=== PATIENT | female | born 1940 | race Caucasian/White ===

== ENCOUNTER 2019-12-02 16:43 | Emergency (ER) | payer MEDICARE, SELFPAY ==
[2019-12-02 16:47] VITALS: BP 200/92; PULSE 51; RESP 18; TEMP 35.6; O2SAT 95; BMI 35.1
[2019-12-02 17:44] VITALS: BP 197/72; PULSE 47; RESP 14; O2SAT 93
[2019-12-02 17:48] LABS: Absolute Lymphocyte Count 1.79 X10^3/uL (0.83-4.51); Absolute Neutrophil Count 5.9 X10^3/uL (2.0-7.7); Basophil# 0.06 X10^3/uL; Basophil% 0.7 % (0-1); Eosinophil# 0.53 X10^3/uL; Eosinophils% 5.9 % (0-5); Hematocrit 31.7 % (37-47); Hemoglobin 10.2 g/dL (12.0-15.0); Lymphocyte # 1.79 X10^3/ul (4.0); Lymphocyte % 19.9 % (19-41); Mean Corp Hgb Conc 32.2 g/dL (32-36); Mean Corpuscular Hgb 28.2 pg (27.0-32.0); Mean Corpuscular Volume 87.6 fL (81-99); Monocyte# 0.63 X10^3/uL; NRBC Flagged by Analyzer 0 % (0-5); Neutrophil # 5.88 X10^3/uL (2.7-7.7); Neutrophil % 65.5 % (47-70); Platelet Count 210 K/mm3 (150-450); RBC Distribution Width CV 13.8 % (11.6-14.6); RBC Distribution Width SD 44.6 fl (35.1-43.9); Red Blood Count 3.62 M/mm3 (4.2-5.4)
[2019-12-02 17:56] LABS: Anion Gap 5 (5-15); BUN 43 mg/dL (7-18); BUN/Creat Ratio 14.1 RATIO (10-20); Calcium,Total 8.4 mg/dL (8.5-10.1); Chloride 115 mmol/L (98-107); Creatinine, Serum 3.05 mg/dL (0.55-1.02); EST Glomerular Filtration Rate 16 mL/min (>60); Est Glom Filt Rate - Afr Amer 19 mL/min (>60); Estimated Creatinine Clearance 13.54 ml/min; Glucose 122 mg/dL (74-106); Sodium Level 142 mmol/L (136-145)
[2019-12-02 18:15] VITALS: BP 176/76; PULSE 49; RESP 16; O2SAT 96
[2019-12-02 18:16] LABS: Bedside Glucose 207 mg/dL (70-110)
--- NOTE | 2019-12-02 18:45 | ED.DCSUM_ITS ---
- ER Visit Summary Date of Service: 12/02/19 Chief Complaint: Low blood sugar History of Present Illness: The patient is a [address] Ridley. She reports that she takes 22 units of Novolog every morning, after lunch, and after supper. She takes 40 units of Lantus nightly. She reports that she had a bologna sandwich approximately 1130 or 12. She took her blood sugar it was 147. At 330 she was found by her unresponsive. On EMS arrival her blood sugar was 31. She was given a dose of glucagon IM and D10 IV. She is now awake, alert, and appropriate. Review of systems: General: No fever, chills, cold sweats. Cardiovascular: No chest pain, palpitations. Respiratory: No cough, shortness of breath, dyspnea on exertion. Gastrointestinal: No abdominal pain, nausea, vomiting, diarrhea, melena, or hematochezia. Genitourinary: No dysuria, frequency, hematuria. Skin: No rash. Neuro: No headache, numbness, weakness. Physical Examination: Vitals: Stable. Afebrile. General: Well-nourished and well-developed. Head: Normocephalic atraumatic. Neck: Supple, no lymphadenopathy. No JVD. Nontender. Cardiovascular: Regular rate and rhythm. No murmurs. Respiratory: No respiratory distress. Clear to auscultation bilaterally. Abdominal: Soft, nontender, nondistended, normal bowel sounds. No guarding, rebound, or peritoneal signs. Back: Nontender. Extremities: Nontender, no edema. Skin: Normal color, no rash. Neurologic: Alert and oriented ?3. Cranial nerves II through XII are intact. Normal strength and sensation. Psych: Normal affect. Test Results: CBC shows an H&H 10.2 and 31.7. Chem-7 shows a chloride of 115, glucose 122, BUN 43, creatinine 3.05, calcium of 8.4. I do not have old labs for comparison. Emergency Department Course and Treatment: Patient ate a meal here and is re sting comfortably. Repeat blood sugars in the 180s. I discussed at this time I do not have an explanation for why her sugar dropped if she has not changed her medications or missed a meal. Treatment Plan: Patient would like to go home. She has a granddaughter that will stay with her and check her sugar once an hour for 2 hours and then every 2 hours for 8 hours following that. She is instructed to skip herdose of NovoLog and take her Lantus tonight as prescribed. Follow-up with her primary care physician in 2 days for another exam. Blood pressure was elevated here. However, she did have a blood pressure 176/76 at one point here as well. I do not think that putting her on a new medication for her blood pressure is in her best interest. She is instructed to speak with her primary care physician about her blood pressure when she sees her as well. Return to the emergency department for any worsening symptoms. Disposition: To home in improved and stable condition. Impression: 1. Hyperglycemia on insulin. 2. Chronic renal insufficiency. 3. Hypertension. This note was generated with [employer] software. It may contain incorrect words, spelling, and punctuation that were not noted in review of the chart prior to signing ED Disposition - Plan for ED Patient: Disposition: Home or Assisted Living Instructions: ED HYPOGLYCEMIA Insulin Rxn Referrals: Florinda Ridley [Primary Care Provider] - 2 Days
[2019-12-02 19:13] VITALS: BP 180/90; PULSE 53; RESP 14; O2SAT 97
[2019-12-02 19:15] LABS: Bedside Glucose 185 mg/dL (70-110)
[2019-12-02 19:40] VITALS: TEMP 35.6; BMI 35.1
[2019-12-04 15:21] LABS: Bedside Glucose 122 mg/dL (70-110)
== END 2019-12-02 19:42 | disposition home or self-care (01) ==
LOC: ED 18:23
PROVIDERS: Emergency Provider Emergency Medicine; PCP Family Medicine
DX: E11.65 Type 2 diabetes mellitus with hyperglycemia (principal); Z79.4 Long term (current) use of insulin; I12.9 Hypertensive chronic kidney disease with stage 1 through stage 4 chronic kidney disease, or unspecified chronic kidney disease; N18.9 Chronic kidney disease, unspecified
CPT/HCPCS: 80048; 82962; 85025; 99285; A4216; J1610

== ENCOUNTER 2020-10-23 12:02 | Inpatient (IN) | payer MEDICARE, MEDICAID, SELFPAY ==
[2020-10-23] VITALS (13 sets, daily range): BP systolic 146–226; BP diastolic 65–95; PULSE 62–67; RESP 14–18; TEMP 36.4–37.1; O2SAT 94–97; BMI 31.1; BMI 29.7
--- NOTE | 2020-10-23 12:31 | EKG12_ITS ---
Test Reason : GEN. ILLNESS Blood Pressure : / mmHG Vent. Rate : 065 BPM Atrial Rate : 065 BPM P-R Int : 202 ms QRS Dur : 114 ms QT Int : 474 ms P-R-T Axes : 050 -67 022 degrees QTc Int : 492 ms Normal sinus rhythm Left axis deviation Anteroseptal infarct , age undetermined Abnormal ECG Confirmed by DEBORA BYRNE, JW ([id number]), newspaper editor managing WU RILEY ([id number]) on 10/28/2020 9:34:40 AM Referred By: ERNIE Confirmed By:LESLEE CAZARES MD
--- NOTE | 2020-10-23 12:35 | ED.VIS.GEN ---
History of Present Illness Chief Complaint: Unresponsive Informant: Patient, Family, Laundry Worker Narrative: 80-year-old female who resides at home and currently was on hospice for end-stage renal disease was unresponsive this morning. revoked hospice and tells me that you need to get her better so I can care for her at home. She entered hospice in the summer months last year. He has been states that they are trying to get her into a care center in [place] where family works. He does not know the status of that. EMS was called and they state that she had a GCS of 8 when they got there when they got her out to the ambulance she had an emesis and is now ANO x3 with a GCS of 15. Patient currently states that she is cold and needs to urinate. Otherwise she states she does not have any complaints. states that he does not know what to do these try to do everything at home to accommodate her but if she cannot get better than he she cannot stay at the house anymore. Patient herself signed a DNR Comfort Care form. She does not want to hooked up to any machines. states that they would like to have little things done to keep her going. Past Medical History - Allergies and Home Meds Allergies/Adverse Reactions: Allergies No Known Allergies Allergy (Verified 10/23/20 12:34) Primary Care Physician: Florinda Ridley [Primary Care Provider] - Past Medical History: - - Chronic kidney disease, hypertension, dyslipidemia Surgical History: noncontributory Lives: Spouse/ Significant Other Smoking Status: Never smoker Drugs: None Review of Systems General: Reports: Chills, Malaise. Denies: Fever, Sweats Eyes: Denies: Visual changes - bilaterally, Diplopia ENT: Denies: Rhinorrhea, Sore throat Cardiovascular: Denies: Chest pain, Palpitations Respiratory: Denies: Dyspnea, Cough, Dyspnea on exertion Gastrointestinal: Denies: Abdominal pain, Nausea, Vomiting, Diarrhea, Melena, Hematochezia Genitourinary: Denies: Dysuria, Hematuria, Frequency Musculoskeletal: Denies: Back pain, Extremity Pain Skin: Denies: Rash, Wounds Neurological: Denies: Headache, Weakness, Numbness Physical Exam Vital Signs/Narrative: Vital Signs Temp Pulse Resp BP Pulse Ox 10/23/20 12:34 63 17 226/95 H 97 10/23/20 12:06 97.6 F L 64 17 215/95 H 96 Inital Vital Signs reviewed: Yes General: Well nourished, Well developed, Obese, No Acute Distress, - - Patient is globally weak. Head: Normocephalic, Atraumatic Eyes: Perrl, EOMI ENT: Moist mucous membranes, No rhinorrhea Neck: Supple, Nontender Cardiovascular: Regular rate, Regular rhythm, No murmurs Respiratory: No distress, CTA bilaterally, Chest nontender Abdomen: Soft, Nontender, Nondistended, Normal bowel sounds Back: Nontender, Normal Inspection Extremities: Nontender, No edema Skin: Normal color, No rash Neurological: Alert, Oriented x3, Cranial nerves II-XII grossly intact, Normal Strength, Normal Sensation Psychological: Normal affect, Normal Mood Diagnostic/Tx/Re-eval Clinical Impression(s) from Imaging Studies Chest X-Ray 10/23/20 12:40 IMPRESSION: No acute abnormality is seen. Electronically Signed: Danie Boyd MD at 13:11 EST , Service support , Brain CT 10/23/20 12:55 IMPRESSION: Chronic involutional changes of the brain. Electronically Signed: Danie Boyd MD at 13:14 EST , Service support , Laboratory Last Values WBC 12.5 K/mm3 (4.4-11.0) H 10/23/20 13:23 RBC 3.46 M/mm3 (4.2-5.4) L 10/23/20 13:23 Hgb 10.0 g/dL (12.0-15.0) L 10/23/20 13:23 Hct 30.1 % (37-47) L 10/23/20 13:23 MCV 87.0 fL (81-99) 10/23/20 13:23 MCH 28.9 pg (27.0-32.0) 10/23/20 13:23 MCHC 33.2 g/dL (32-36) 10/23/20 13:23 RDW Std Deviation 39.2 fl (35.1-43.9) 10/23/20 13:23 RDW Coeff of [place] 12.2 % (11.6-14.6) 10/23/20 13:23 Plt Count 261 K/mm3 (150-450) 10/23/20 13:23 MPV 9.5 fl (6.2-12.0) 10/23/20 13:23 Immature Gran % (Auto) 0.600 % (0.0-0.9) 10/23/20 13:23 Neut % (Auto) 78.6 % (47-70) H 10/23/20 13:23 Lymph % (Auto) 13.9 % (19-41) L 10/23/20 13:23 [place] % (Auto) 3.4 % (0-10) 10/23/20 13:23 Eos % (Auto) 2.9 % (0-5) 10/23/20 13:23 Baso % (Auto) 0.6 % (0-1) 10/23/20 13:23 Absolute Neuts (auto) 9.8 X10^3/uL (2.0-7.7) H 10/23/20 13:23 Absolute Lymphs (auto) 1.73 X10^3/uL (0.83-4.51) 10/23/20 13:23 Nucleated RBC % 0 % (0-5) 10/23/20 13:23 PT 14.1 SECONDS (11.7-14.9) 10/23/20 13:23 INR 1.1 10/23/20 13:23 APTT 34.6 Seconds (24.1-36.2) 10/23/20 13:23 Sodium 135 mmol/L (136-145) L 10/23/20 13:23 Potassium 5.0 mmol/L (3.5-5.1) 10/23/20 13:23 Chloride 101 mmol/L (98-107) 10/23/20 13:23 Carbon Dioxide 27.0 mmol/L (21.0-32.0) 10/23/20 13:23 Anion Gap 7 (5-15) 10/23/20 13:23 BUN 49 mg/dL (7-18) H 10/23/20 13:23 Creatinine 5.07 mg/dL (0.55-1.02) H 10/23/20 13:23 Estim Creat Clear Calc 8.32 ml/min 10/23/20 13:23 Est GFR (MDRD) Af Amer 11 mL/min (>60) L 10/23/20 13:23 Est GFR (MDRD) Non-Af 9 mL/min (>60) L 10/23/20 13:23 BUN/Creatinine Ratio 9.7 RATIO (10-20) L 10/23/20 13:23 Glucose 152 mg/dL (74-106) H 10/23/20 13:23 Lactic Acid 0.7 mmol/L (0.4-1.9) 10/23/20 13:23 Calcium 8.9 mg/dL (8.5-10.1) 10/23/20 13:23 Total Bilirubin 0.40 mg/dL (0.20-1.00) 10/23/20 13:23 AST 15 U/L (15-37) 10/23/20 13:23 ALT 17 U/L (13-56) 10/23/20 13:23 Alkaline Phosphatase 92 U/L (45-117) 10/23/20 13:23 Troponin I < 0.015 ng/mL (<0.045) 10/23/20 13:23 Total Protein 7.5 g/dL (6.4-8.2) 10/23/20 13:23 Albumin 3.3 g/dL (3.2-5.0) 10/23/20 13:23 Globulin 4.2 g/dL (2.2-4.2) 10/23/20 13:23 Albumin/Globulin Ratio 0.8 RATIO (0.9-2.4) L 10/23/20 13:23 Urine Color Yellow (Yellow) 10/23/20 13:55 Urine Clarity Clear (Clear) 10/23/20 13:55 Urine pH 7.0 (5.0 - 8.0) 10/23/20 13:55 Ur Specific [place] 1.010 (1.002-1.030) 10/23/20 13:55 Urine Protein 500 mg/dl (Negative) H 10/23/20 13:55 Urine Glucose (UA) 50 mg/dl (Normal) H 10/23/20 13:55 Urine Ketones Negative mg/dl (Negative) 10/23/20 13:55 Urine Occult Blood Negative /ul (Negative) 10/23/20 13:55 Urine Nitrite Negative (Negative) 10/23/20 13:55 Urine Bilirubin Negative mg/dL (Negative) 10/23/20 13:55 Urine Urobilinogen Normal mg/dl (Normal) 10/23/20 13:55 Ur Leukocyte Esterase 25 /ul (Negative) H 10/23/20 13:55 Urine RBC 0 SEEN /hpf (0-5) 10/23/20 13:55 Urine WBC 0-5 SEEN /hpf (0-5) 10/23/20 13:55 Ur Squamous Epith Cells 0 SEEN /hpf (5-10) 10/23/20 13:55 Urine Bacteria 2+ /hpf (None Seen) 10/23/20 13:55 Urine Mucus 0 SEEN /hpf (<or=2+) 10/23/20 13:55 - Medical Decision Making Work-up shows a mild leukocytosis of 12. Creatinine worsening at 5. Head CT negative. Vital signs of been demonstrating hypertension and we administered her daily medications for hypertension. We are awaiting their arrival from pharmacy. Patient it does not sound like he is doing well and can continue to be cared for at home. I had social work speak with the patient and family and we are going to admit her for observation tonight and obtain precertification's [place] [facility]. This will also give us a chance to further explore the possibilities of why she was unresponsive this morning as well as evaluate the hypertensive urgency. ED Disposition - Plan for ED Patient: Disposition: Acute Care [facility] Diagnosis: Hypertensive urgency, Unresponsive episode, ESRD (end stage renal disease) Referrals: Florinda Ridley [Primary Care Provider] -
--- NOTE | 2020-10-23 12:40 | RAD_ITS ---
STUDY: X-RAY CHEST REASON FOR EXAM: Female, 80 years old. Unresponsive episode TECHNIQUE: Single AP portable view of the chest. COMPARISON: None. FINDINGS: EKG electrodes are seen. The lungs are clear and expanded. There is no demonstrated pleural abnormality. Normal size heart. Normal mediastinum and nahid. Normal visualized pulmonary arteries. Normal visualized aortic arch and descending thoracic aorta. There are degenerative changes of the visualized thoracic spine. Normal visualized ribs, clavicles, and shoulders. There is no demonstrated abnormality of the visualized soft tissue structures of the upper abdomen. RAD/Chest 1 View (Portable) IMPRESSION: No acute abnormality is seen. Electronically Signed: Danie Boyd MD at 13:11 EST , Service support ,
--- NOTE | 2020-10-23 12:55 | CT_ITS ---
STUDY: CT BRAIN WITHOUT CONTRAST REASON FOR EXAM: Female, 80 years old. Patient found unresponsive RADIATION DOSAGE (If Supplied By Facility): CTDIvol = ( 44.99 ) mGy, DLP = ( 779.24 ) mGycm TECHNIQUE: Transaxial CT imaging of the brain was performed without administration of intravenous contrast material. Individualized dose optimization techniques were used for this CT. COMPARISON: No relevant priors. FINDINGS: Normal soft tissue structures. Normal calvarium. There is mild cerebral atrophy with widening of the extra-axial spaces and ventricular dilatation. There are areas of decreased attenuation within the white matter tracts of the supratentorial brain, consistent with microvascular disease changes. Normal basal ganglia and thalami. Normal brainstem. There is mild cerebellar atrophy. There is no intracranial hemorrhage. There are no findings of an acute ischemic infarction. Atherosclerotic calcification of the cavernous portions of the internal carotid arteries bilaterally. Normal visualized paranasal sinuses. CT/Brain/Head without Contrast IMPRESSION: Chronic involutional changes of the brain. Electronically Signed: Danie Boyd MD at 13:14 EST , Service support ,
--- NOTE | 2020-10-23 13:15 | NURSING ---
NO OLD EKGS
[2020-10-23 13:35] LABS: Absolute Lymphocyte Count 1.73 X10^3/uL (0.83-4.51); Absolute Neutrophil Count 9.8 X10^3/uL (2.0-7.7); Basophil# 0.07 X10^3/uL; Basophil% 0.6 % (0-1); Eosinophil# 0.36 X10^3/uL; Eosinophils% 2.9 % (0-5); Hematocrit 30.1 % (37-47); Lymphocyte # 1.73 X10^3/ul (4.0); Lymphocyte % 13.9 % (19-41); Mean Corp Hgb Conc 33.2 g/dL (32-36); Mean Corpuscular Hgb 28.9 pg (27.0-32.0); Mean Platelet Vol. 9.5 fl (6.2-12.0); Monocyte# 0.43 X10^3/uL; Monocyte% 3.4 % (0-10); NRBC Flagged by Analyzer 0 % (0-5); Neutrophil # 9.82 X10^3/uL (2.7-7.7); Neutrophil % 78.6 % (47-70); Platelet Count 261 K/mm3 (150-450); RBC Distribution Width CV 12.2 % (11.6-14.6); RBC Distribution Width SD 39.2 fl (35.1-43.9); Red Blood Count 3.46 M/mm3 (4.2-5.4); White Blood Count 12.5 K/mm3 (4.4-11.0)
[2020-10-23 13:50] LABS: International Normalized Ratio 1.1; Prothrombin Time (Protime)PT. 14.1 SECONDS (11.7-14.9)
[2020-10-23 13:51] LABS: Partial Thromboplast Time 34.6 Seconds (24.1-36.2)
[2020-10-23 13:52] LABS: ALB/GLOB Ratio 0.8 RATIO (0.9-2.4); AST(SGOT) 15 U/L (15-37); Alanine Aminotransfer ALT/SGPT 17 U/L (13-56); Albumin, Serum 3.3 g/dL (3.2-5.0); Alkaline Phosphatase 92 U/L (45-117); Anion Gap 7 (5-15); BUN 49 mg/dL (7-18); BUN/Creat Ratio 9.7 RATIO (10-20); Calcium,Total 8.9 mg/dL (8.5-10.1); Chloride 101 mmol/L (98-107); Creatinine, Serum 5.07 mg/dL (0.55-1.02); EST Glomerular Filtration Rate 9 mL/min (>60); Est Glom Filt Rate - Afr Amer 11 mL/min (>60); Estimated Creatinine Clearance 8.32 ml/min; Globulin 4.2 g/dL (2.2-4.2); Glucose 152 mg/dL (74-106); Protein, Total 7.5 g/dL (6.4-8.2); Sodium Level 135 mmol/L (136-145)
[2020-10-23 14:02] LABS: Lactic Acid 0.7 mmol/L (0.4-1.9)
[2020-10-23 14:05] LABS: Mucous, Urine 0 SEEN /hpf (<or=2+); Red Blood Cells-Urine 0 SEEN /hpf (0-5); Squamous Epithelial Cells - UA 0 SEEN /hpf (5-10)
[2020-10-23 14:10] LABS: Color, Urine Yellow (Yellow); Glucose, Dipstick 50 mg/dl (Normal); Ketone-Dipstick Negative (Negative); Leukocyte Esterase-Dipstick 25 /ul (Negative); Nitrite-Dipstick Negative (Negative); Occult Blood-Urine Negative /ul (Negative); Protein-Dipstick 500 mg/dl (Negative); Urine Bilirubin Dipstick Negative (Negative); Urine Clarity Clear (Clear); Urine Urobilinogen Normal (Normal)
[2020-10-23 14:19] LABS: White Blood Cells 0-5 SEEN /hpf (0-5)
[2020-10-23] MEDS: Carvedilol 25 MG Tablet PO ×2 (14:19→21:27)
[2020-10-23] MEDS: Losartan Potassium 25 MG Tablet PO (14:19)
[2020-10-23 14:21] LABS: Bacteria 2+ /hpf (None Seen)
--- NOTE | 2020-10-23 14:53 | NURSING ---
DR MARCIANO SIMPSON
--- NOTE | 2020-10-23 15:10 | PCM.HP.STD ---
Problem List (1) Acute encephalopathy Status: Acute (2) Depression Status: Chronic (3) Hyperlipidemia Status: Chronic (4) Type 2 diabetes mellitus Status: Chronic (5) Hypertension Status: Chronic (6) Hypertensive urgency Status: Acute (7) ESRD (end stage renal disease) Status: Chronic History of Present Illness Date of Admission: 10/23/20 Chief Complaint: Unresponsiveness. The patient is a 80 year old F with past medical history as mentioned above presented to the emergency room because she was unresponsive this morning. Patient is very hard of hearing and she was not able to provide detailed history. She was able to answer few questions. Patient's was at the bedside and he provided the information. According to the , patient was unresponsive this morning, he could not wake her up for several minutes, not able to open her eyes and not responding to questions. He mentioned that she did not take her medications this morning. Squad was called and they mentioned that patient had a [place] Coma Scale of 8 upon arrival to her house, had episode of vomiting and she became alert and oriented with [place] Coma Scale of 15. Currently, patient complained of headache and she has no other complaints. She is alert and oriented x3 at this time. Patient's mentioned that he wanted her to be stabilized and go to a [facility] facility where her daughter works. She had a history of end-stage renal disease, was recommended to go for dialysis but patient refused. She has history of hypertension and she has been on Coreg and losartan. She will history of type 2 diabetes mellitus that she has been on Lantus and NovoLog and her blood sugar has been under fair control. In the emergency department, she was afebrile, heart rate stable, blood pressure was highly elevated of up to 226 systolic. She received 1 dose of Coreg, losartan IV hydralazine and her blood pressure started to come down. Routine blood work was remarkable for mild leukocytosis, hemoglobin 10 g/dL which is chronic, BUN of 49, creatinine is 5.07. EKG revealed normal sinus rhythm without evidence of acute ischemic changes. Troponin was negative. Lactic acid was normal. LFT was unremarkable. Urinalysis showed no evidence of acute cystitis. CT scan brain showed no acute infarct or hemorrhage. Chest x-ray showed no acute infiltrate or consolidation. Past Medical History Past Medical History (Chronic Problems): Chronic Problems Depression (Chronic) Hyperlipidemia (Chronic) Type 2 diabetes mellitus (Chronic) Hypertension (Chronic) ESRD (end stage renal disease) (Chronic) Allergies No Known Allergies Allergy (Verified 10/23/20 12:34) Home Medications: Ambulatory Orders Medication Instructions Recorded Aspirin [Aspirin, Baby] 81 mg PO DAILY 12/02/19 Atorvastatin Calcium 40 mg PO QHS 12/02/19 Carvedilol 25 mg PO BID 12/02/19 Cephalexin [Keflex] 250 mg PO DAILY 12/02/19 Cholecalciferol (VIT D3) [Vitamin 3,000 unit PO DAILY 12/02/19 D] Ferrous Sulfate 325 mg PO DAILY 12/02/19 Insulin Aspart [Novolog Flexpen 20 units SUBCUT LUNCH 12/02/19 ([facility] [place])] Insulin Aspart [Novolog Flexpen 22 units SUBCUT BID 12/02/19 ([facility] [place])] Insulin Glargine,Hum.rec.anlog 40 unit SQ QHS 12/02/19 [Lantus] Losartan Potassium 25 mg PO DAILY 12/02/19 Multivit with Iron,Minerals 1 ea PO DAILY 12/02/19 [Complete Senior] Sertraline HCl [Zoloft] 50 mg PO DAILY 12/02/19 Surgical History: cholecystectomy, hysterectomy Psychiatric History: Depression 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 Denies: Ear Pain, Eye Pain, Nasal Congestion, Sore Throat Cardiovascular: Denies: Chest Pain, Chest Pressure, Heaviness, Palpitations Respiratory: Denies: Cough, Hemoptysis, Pleuritic Pain, Shortness of Breath, Sputum production, Wheezing Gastrointestinal: Denies: Abdominal Pain, Constipation, Diarrhea, Nausea, Vomiting Genitourinary: Denies: Dysuria, Frequency, Hematuria Musculoskeletal: Denies: Arm Pain, Back Pain, Foot Pain Skin: Denies: Dryness, Rash Neurological: Reports: Headaches. Denies: Balance problems, Double vision, Change in Speech, Slurred speech, Confusion, Incoordination, Numbness Psychiatric: Reports: Depression. Denies: Anxiety Endocrine: Denies: Change in Body Habitus, Polydipsia, Polyuria VTE Information - Inpt Only VTE Present on Admission: No VTE Mechan Device Prophylaxis: None VTE Pharm Prophylaxis ordered?: Yes Patient Problems: Active and Suspected Problems Hypertensive urgency (Acute) - Physical Exam Vitals/I&O's: Vital Signs Temp Pulse Resp BP Pulse Ox 97.6 F L 64 14 219/93 H 96 10/23/20 12:06 10/23/20 14:16 10/23/20 14:16 10/23/20 14:16 10/23/20 14:16 Oxygen Delivery Method Room Air Weight: 198 lb 13.711 oz Body Mass Index (BMI) 31.1 Finger Stick Blood Glucose 185 General: Alert, Oriented x3, Cooperative, No apparent distress HEENT: Atraumatic, PERRLA, EOMI, Normocephalic Oral: Moist Mucosa, No Gingival or Mucosal Lesions/ Ulcerations Neck: Supple, No JVD, Negative Carotid Bruits, Trachea Midline, Thyroid Normal Size and Texture Lungs: Clear to auscultation, Normal air movement, No rhonchi, No wheeze, No rales, Diminished Cardiovascular: Regular rate, Regular Rhythm, Normal S1, Normal S2, PMI Normal Abdomen: Bowel Sounds Present, Soft, Non Tender, Non-Distended, No Hepato-splenomegaly Extremities: No clubbing, No cyanosis, No edema Skin: No rashes, No breakdown Lymphatic: No Cervical, Supraclavicular, or Inguinal Adenopathy Neurological: Cranial nerves II-XII grossly intact, Motor Exam 5/5 strength throughout Psych/Mental Status: Normal Affect, Appropriate Laboratory Results 10/23/20 13:23: WBC 12.5 H, RBC 3.46 L, Hgb 10.0 L, Hct 30.1 L, MCV 87.0, MCH 28.9, MCHC 33.2, RDW Std Deviation 39.2, RDW Coeff of [place] 12.2, Plt Count 261, MPV 9.5, Immature Gran % (Auto) 0.600, Neut % (Auto) 78.6 H, Lymph % (Auto) 13.9 L, [place] % (Auto) 3.4, Eos % (Auto) 2.9, Baso % (Auto) 0.6, Absolute Neuts (auto) 9.8 H, Absolute Lymphs (auto) 1.73, Nucleated RBC % 0 10/23/20 13:23: PT 14.1, INR 1.1, APTT 34.6 10/23/20 13:23: Sodium 135 L, Potassium 5.0, Chloride 101, Carbon Dioxide 27.0, Anion Gap 7, BUN 49 H, Creatinine 5.07 H, Estim Creat Clear Calc 8.32, Est GFR (MDRD) Af Amer 11 L, Est GFR (MDRD) Non-Af 9 L, BUN/Creatinine Ratio 9.7 L, Glucose 152 H, Calcium 8.9, Total Bilirubin 0.40, AST 15, ALT 17, Alkaline Phosphatase 92, Troponin I < 0.015, Total Protein 7.5, Albumin 3.3, Globulin 4.2, Albumin/Globulin Ratio 0.8 L 10/23/20 13:23: Lactic Acid 0.7 10/23/20 13:55: Urine Color Yellow, Urine Clarity Clear, Urine pH 7.0, Ur Specific [place] 1.010, Urine Protein 500 H, Urine Glucose (UA) 50 H, Urine Ketones Negative, Urine Occult Blood Negative, Urine Nitrite Negative, Urine Bilirubin Negative, Urine Urobilinogen Normal, Ur Leukocyte Esterase 25 H, Urine RBC 0 SEEN, Urine WBC 0-5 SEEN, Ur Squamous Epith Cells 0 SEEN, Urine Bacteria 2+, Urine Mucus 0 SEEN Clinical Impression(s) from Imaging Studies Chest X-Ray 10/23/20 12:40 IMPRESSION: No acute abnormality is seen. Electronically Signed: Danie Boyd MD at 13:11 EST , Service support , Brain CT 10/23/20 12:55 IMPRESSION: Chronic involutional changes of the brain. Electronically Signed: Danie Boyd MD at 13:14 EST , Service support , Assessment/Plan All Active Problems Acute encephalopathy (Acute) Hypertensive urgency (Acute) This is an 80 years old female patient presented to the emergency room because of unresponsive episode, found to have highly elevated blood pressure consistent with hypertensive urgency and she is being admitted for treatment. #1 acute encephalopathy: Attributed to very highly elevated blood pressure. CT scan brain showed no acute infarct or hemorrhage. EKG without acute ischemic changes and troponin was negative. Currently, patient is alert and treated x3. Discharge plan will be placement to [facility] facility where patient's daughter works after stabilization. Plan: Admit to PCU, cardiac monitoring, gentle IV fluids for hydration, Tylenol as needed, Zofran as needed, treat high blood pressure, repeat CBC and BMP tomorrow morning, PT OT evaluation and treatment, case management consult for placement to [facility] facility. #2 hypertensive urgency: Blood pressure was up to 226 systolic. Patient did not take her medications morning, she was given losartan, IV hydralazine and Coreg. Blood pressure started to improve. CT scan was unremarkable as above. Plan: Continue Coreg and p.o. hydralazine, IV hydralazine as needed. #3 end-stage renal disease: Reportedly, patient refused to go for dialysis. Patient's confirmed that patient does not want to go for dialysis again. Admission BUN was 49, creatinine is 5.07. Plan for gentle IV fluid hydration, repeat BMP tomorrow morning. #4 hypertension: Blood pressure is very high elevated, plan as above. #5 type 2 diabetes mellitus: ADA diet, Accu-Cheks, insulin sliding scale, continue Lantus and Humalog. #6 hyperlipidemia: Continue statins. #7 depression: Continue Zoloft. #8 CODE STATUS: DNR CC. Confirmed with the patient's . Signed document reviewed. #9 DVT prophylaxis: Subcu heparin. This note was generated with [employer] dictation software. It may contain incorrect words, spelling, and punctuation that were not noted in checking the note before signing. Inpatient E&M: 29631 Init Hosp L3
--- NOTE | 2020-10-23 15:11 | NURSING ---
PCU [facility] HYPERTENSIVE URGENCY, UNRESPONSIVE EPISODE
[2020-10-23] MEDS: hydrALAZINE 20 MG/ML Vial 10 MG IV (15:31)
[2020-10-23] MEDS: 0.9% Normal Saline 1,000 ML 75 ML IV (16:01)
--- NOTE | 2020-10-23 16:30 | CM.ED ---
Social Work -ED Consult received by Dr. Fernandes regarding after care needs. Met with patient and Ganga in patient's room in the ED. Patient hard or hearing, kept eyes closed, but would answer this curriculum writer when this curriculum writer spoke loudly. Patient alert and oriented to person, place (hospital, though thought it was [place]), year, month, age, and current assistant vice president. Attempted patient engagement, but patient quiet overall. providing most of information. Per the , patient was enrolled in hospice care at home, through [facility]. Hospice was discontinued due to the calling 911 and having patient brought to hospital. reports he, nor patient, want patient hooked up to machines nor want a lot done but patient's physical health is declined and the was unable to care for patient. Through conversation this curriculum writer confirmed with patient and both, that patient does desire to remain on hospice, doesn't want therapies but wants to be kept comfortable and be cared for. reports patient's daughter Judi works at [facility] [employer] and would like for patient to go there. reports Judi is trying to get some paperwork done and has been working with [facility] on securing a bed for patient. Patient and verbally agreed to allows social work professor to talk to Judi about patient's aftercare needs. This curriculum writer did ask the to bring in advanced directives if completed. reports belief that may have paperwork at home. Spoke with Judi on the phone. Judi confirms to work at [facility], as well as the patient's granddaughter. Let Judi know that it appears patient's wish is to remain on hospice, but the barrier is patient's 's ability to provide the physical care of patient. Judi in agreement. Talked with Judi about applying for Medicaid. Judi has done this and patient was denied for community Medicaid, but was told that tif patient goes to a fci to reapply. Asked Judi to do this and Judi agreed. Judi called back and left message that was able to do a new application with [facility]. Spoke with ED physician and updated. Planning for patient admission to hospital at this time. Handoff report to Acute social work professor for continued discharge planning needs of this patient. Anticipating NF placement, with hospice service reinstated upon admission to the NF. -EVERARDO Ramsey, GROUTER HELPER
[2020-10-23] MEDS: Insulin Lispro 100 UNIT/ML INSULN.PEN 10 UNIT SC (17:32)
[2020-10-23] MEDS: Insulin Lispro 100 UNIT/ML INSULN.PEN SC (17:33)
[2020-10-23 17:50] LABS: Bedside Glucose 167 mg/dL (70-110)
[2020-10-23] MEDS: Acetaminophen 325 MG Tablet 650 MG PO (18:29)
[2020-10-23] MEDS: hydrALAZINE 25 MG Tablet PO (21:27)
[2020-10-23] MEDS: Heparin Injection (Vial) 5,000 UNIT/ML VIAL 5000 UNIT SC (21:27)
[2020-10-23 21:41] LABS: Bedside Glucose 135 mg/dL (70-110)
[2020-10-24] VITALS (14 sets, daily range): BP systolic 110–160; BP diastolic 57–85; PULSE 58–87; RESP 15–17; TEMP 36.6–37.2; O2SAT 95–98
[2020-10-24] MEDS: Heparin Injection (Vial) 5,000 UNIT/ML VIAL 5000 UNIT SC ×3 (05:26→21:09)
[2020-10-24 06:10] LABS: Absolute Lymphocyte Count 2.12 X10^3/uL (0.83-4.51); Basophil# 0.06 X10^3/uL; Basophil% 0.7 % (0-1); Eosinophil# 0.35 X10^3/uL; Eosinophils% 3.8 % (0-5); Hematocrit 24.7 % (37-47); Hemoglobin 8.1 g/dL (12.0-15.0); Lymphocyte # 2.12 X10^3/ul (4.0); Lymphocyte % 23.1 % (19-41); Mean Corp Hgb Conc 32.8 g/dL (32-36); Mean Corpuscular Hgb 28.4 pg (27.0-32.0); Mean Corpuscular Volume 86.7 fL (81-99); Mean Platelet Vol. 9.7 fl (6.2-12.0); Monocyte# 0.58 X10^3/uL; Monocyte% 6.3 % (0-10); NRBC Flagged by Analyzer 0 % (0-5); Neutrophil # 6.02 X10^3/uL (2.7-7.7); Neutrophil % 65.7 % (47-70); Platelet Count 241 K/mm3 (150-450); RBC Distribution Width CV 12.3 % (11.6-14.6); RBC Distribution Width SD 39.5 fl (35.1-43.9); Red Blood Count 2.85 M/mm3 (4.2-5.4); White Blood Count 9.2 K/mm3 (4.4-11.0)
[2020-10-24 06:35] LABS: Bedside Glucose 115 mg/dL (70-110)
[2020-10-24 06:39] LABS: Anion Gap 8 (5-15); BUN 48 mg/dL (7-18); Calcium,Total 8.2 mg/dL (8.5-10.1); Chloride 105 mmol/L (98-107); Creatinine, Serum 4.79 mg/dL (0.55-1.02); EST Glomerular Filtration Rate 9 mL/min (>60); Est Glom Filt Rate - Afr Amer 11 mL/min (>60); Estimated Creatinine Clearance 8.81 ml/min; Glucose 118 mg/dL (74-106); Potassium 4.1 mmol/L (3.5-5.1); Sodium Level 138 mmol/L (136-145)
[2020-10-24] MEDS: Insulin Lispro 100 UNIT/ML INSULN.PEN 10 UNIT SC (08:22)
[2020-10-24] MEDS: Aspirin 81 MG TAB.CHEW PO (08:22)
[2020-10-24] MEDS: hydrALAZINE 25 MG Tablet PO ×2 (09:34→21:09)
[2020-10-24] MEDS: Carvedilol 25 MG Tablet PO ×2 (09:34→21:08)
[2020-10-24] MEDS: Furosemide 40 MG Tablet PO (09:35)
[2020-10-24] MEDS: Sertraline 50 MG Tablet 75 MG PO (09:35)
--- NOTE | 2020-10-24 10:27 | CASEMGMT ---
ED SW passed along in report that the plan is for patient to go to [facility]. Patient was active with them, but revoked it to come to [facility]. СВЕТЛАНА called [facility] ([phone]) and left a message for the nurse to call СВЕТЛАНА back. СВЕТЛАНА will call [facility] as well. Patient's daughter and granddaughter work there. СВЕТЛАНА called [facility] ([phone]) and left a message for Anna in admissions to call СВЕТЛАНА back. Joan SALCEDO PRIVACY COMPLIANCE MANAGER
--- NOTE | 2020-10-24 10:47 | CASEMGMT ---
SW called patient's and confirmed they want patient to go to [facility]. He said that is what they want. СВЕТЛАНА let him know SW is working on arrangements. Waiting on return calls. Joan SALCEDO MSW
--- NOTE | 2020-10-24 11:00 | CASEMGMT ---
СВЕТЛАНА received a return phone call from Crystal with [facility]. She asked about patient's admitting diagnosis. СВЕТЛАНА told her the plan is for patient to go to [facility]. This could possibly happen today or tomorrow. She said when СВЕТЛАНА has more information СВЕТЛАНА should call in and ask for the referrals dept. Awaiting return call from [facility]. Joan SALCEDO MSW
--- NOTE | 2020-10-24 11:52 | CASEMGMT ---
СВЕТЛАНА received a call from Maisha with [facility]. She asked if СВЕТЛАНА could fax referral information. Since patient revoked Hospice this will be a new referral. СВЕТЛАНА faxed information to [facility]. and fax: [phone] SW called [facility] as СВЕТЛАНА has not heard back. СВЕТЛАНА spoke with Carolyn and she was not aware of situation. СВЕТЛАНА asked if there was a Anna Minor that works there as she is aware of the situation. Carolyn said Anna does work there as the admissions person. Carolyn said she is the Emergency Veterinarian and helps Anna out. She will have Anna call СВЕТЛАНА. Joan SALCEDO MSW
--- NOTE | 2020-10-24 11:55 | PCM.EXTCARCO ---
- Diet 10/23/20 15:39 Diet: Cardiac: Calorie-Controlled Food consistency:: Regular Liquid Consistency:: Regular/Thin How many daily calories?: 1800 calorie - Routine Orders/Code Status Enema Type: Fleetz Enema Frequency: Daily PRN Suppository Type: Dulcolax 10mg Suppository Frequency: Daily PRN Code Status: DNRCC - Problem/Diagnosis (1) Acute encephalopathy Status: Acute (2) Depression Status: Chronic (3) Hyperlipidemia Status: Chronic (4) Type 2 diabetes mellitus Status: Chronic (5) Hypertension Status: Chronic (6) Hypertensive urgency Status: Acute (7) ESRD (end stage renal disease) Status: Chronic - Allergies/Procedures Done in Hospital Allergies/Adverse Reactions: Allergies No Known Allergies Allergy (Verified 10/23/20 12:34) Procedures: None - Type of Care/Length of Stay Estimated LOS: More Than 30 Days Type of Care Needed: Intermediate Rehab Potential: Fair Prognosis: Fair - Additional Orders/Day of Discharge H&P will serve as current which was dated: 10/23/20 Day of Discharge: 10/24/20 - Follow Up Care Primary Care Physician: Florinda Ridley [Primary Care Provider] - Please follow up with your Primary Care Physician in: As needed Please Follow Up With: Hospice to follow at SNF
--- NOTE | 2020-10-24 12:00 | PN_ITS ---
<PrashantFlaquita GREENHOUSE FLORIST - Last Filed: 10/24/20 12:03> Patient Problems: Active and Suspected Problems Unresponsive episode (Acute) Acute encephalopathy (Acute) Hypertensive urgency (Acute) Subjective: Patient seen and examined. Denies current symptoms or complaints. Requesting to go to SNF in bed I know where her daughter works, patient states she would like to go there as soon as possible and resume hospice services at SNF. - Physical Exam Vitals/I&O's: Vital Signs Temp Pulse Resp BP Pulse Ox 97.9 F 63 16 124/57 H 96 10/24/20 09:09 10/24/20 09:34 10/24/20 09:09 10/24/20 09:34 10/24/20 09:09 Oxygen Delivery Method Room Air Weight: 189 lb 9.561 oz Body Mass Index (BMI) 29.7 Finger Stick Blood Glucose 185 Intake and Output for Last 24 Hours 10/22/20 10/23/20 10/24/20 23:59 23:59 23:59 Intake Total 240 / 420 1112.5 / 1112.5 Output Total 0 / 0 Balance 240 / 420 1112.5 / 1112.5 General: Alert, Oriented x3, Cooperative HEENT: Atraumatic, PERRLA, EOMI, Normocephalic Neck: Supple, No JVD, Negative Carotid Bruits Lungs: Clear to auscultation, Normal air movement Cardiovascular: Regular rate, No murmurs Abdomen: Bowel Sounds Present, Soft, Non Tender, Non-Distended Extremities: No clubbing, No cyanosis, No edema, Capillary Refill Less than 3 Seconds Skin: No rashes, No breakdown Musculoskeletal: No Tenderness to Palpation of Joints or Extremities Neurological: Cranial nerves II-XII grossly intact, Neuro grossly intact Psych/Mental Status: Normal Affect, Appropriate Microbiology Past 72 Hours 10/24/20 11:10 Mucosa - Nose SARS-CoV-2 Antigen (Rapid) - Final Laboratory Results 10/23/20 13:23: WBC 12.5 H, RBC 3.46 L, Hgb 10.0 L, Hct 30.1 L, MCV 87.0, MCH 28.9, MCHC 33.2, RDW Std Deviation 39.2, RDW Coeff of [place] 12.2, Plt Count 261, MPV 9.5, Immature Gran % (Auto) 0.600, Neut % (Auto) 78.6 H, Lymph % (Auto) 13.9 L, [place] % (Auto) 3.4, Eos % (Auto) 2.9, Baso % (Auto) 0.6, Absolute Neuts (auto) 9.8 H, Absolute Lymphs (auto) 1.73, Nucleated RBC % 0 10/23/20 13:23: PT 14.1, INR 1.1, APTT 34.6 10/23/20 13:23: Sodium 135 L, Potassium 5.0, Chloride 101, Carbon Dioxide 27.0, Anion Gap 7, BUN 49 H, Creatinine 5.07 H, Estim Creat Clear Calc 8.32, Est GFR (MDRD) Af Amer 11 L, Est GFR (MDRD) Non-Af 9 L, BUN/Creatinine Ratio 9.7 L, Glucose 152 H, Calcium 8.9, Total Bilirubin 0.40, AST 15, ALT 17, Alkaline Phosphatase 92, Troponin I < 0.015, Total Protein 7.5, Albumin 3.3, Globulin 4.2, Albumin/Globulin Ratio 0.8 L 10/23/20 13:23: Lactic Acid 0.7 10/23/20 13:55: Urine Color Yellow, Urine Clarity Clear, Urine pH 7.0, Ur Specific [place] 1.010, Urine Protein 500 H, Urine Glucose (UA) 50 H, Urine Ketones Negative, Urine Occult Blood Negative, Urine Nitrite Negative, Urine Bilirubin Negative, Urine Urobilinogen Normal, Ur Leukocyte Esterase 25 H, Urine RBC 0 SEEN, Urine WBC 0-5 SEEN, Ur Squamous Epith Cells 0 SEEN, Urine Bacteria 2+, Urine Mucus 0 SEEN 10/23/20 17:23: POC Glucose 167 H 10/23/20 21:26: POC Glucose 135 H 10/24/20 05:32: WBC 9.2, RBC 2.85 L, Hgb 8.1 L, Hct 24.7 L, MCV 86.7, MCH 28.4, MCHC 32.8, RDW Std Deviation 39.5, RDW Coeff of [place] 12.3, Plt Count 241, MPV 9.7, Immature Gran % (Auto) 0.400, Neut % (Auto) 65.7, Lymph % (Auto) 23.1, [place] % (Auto) 6.3, Eos % (Auto) 3.8, Baso % (Auto) 0.7, Absolute Neuts (auto) 6.0, Absolute Lymphs (auto) 2.12, Nucleated RBC % 0 10/24/20 05:32: Sodium 138, Potassium 4.1, Chloride 105, Carbon Dioxide 25.0, Anion Gap 8, BUN 48 H, Creatinine 4.79 H, Estim Creat Clear Calc 8.81, Est GFR (MDRD) Af Amer 11 L, Est GFR (MDRD) Non-Af 9 L, BUN/Creatinine Ratio 10.0, Glucose 118 H, Calcium 8.2 L 10/24/20 06:31: POC Glucose 115 H Current Medications Acetaminophen (Acetaminophen 325 Mg Tablet) 650 mg PO Q6H PRN PRN PRN Reason: Pain Score 1-10/Temp > 100.7 F Last Admin: 10/23/20 18:29 Dose: 650 mg Documented by: Aspirin (Aspir[facility] 81 Mg [facility].Chew) [facility] Last Admin: 10/24/20 08:22 Dose: 81 mg Documented by: Carvedilol (Carvedilol 25 Mg Tablet) 25 mg PO BID [facility] Last Admin: 10/24/20 09:34 Dose: 25 mg Documented by: Furosemide (Furosemide 40 Mg Tablet) 40 mg PO DAILY [facility] Last Admin: 10/24/20 09:35 Dose: 40 mg Documented by: Heparin Sodium (Porcine) (Heparin Injection (Vial) 5,000 Unit/Ml Vial) 5,000 unit SC Q8 [facility] Last Admin: 10/24/20 05:26 Dose: 5,000 unit Documented by: Hydralazine HCl (Hydralazine 20 Mg/Ml Vial) 10 mg IV Q4H PRN PRN PRN Reason: for SBP>160 Hydralazine HCl (Hydralazine 25 Mg Tablet) 25 mg PO BID [facility] Last Admin: 10/24/20 09:34 Dose: 25 mg Documented by: Insulin Glargine (Insulin Glargine 100 Units/Ml Pen) 30 units SC QHS [facility] Last Admin: 10/23/20 21:27 Dose: 30 units Documented by: Insulin Human Lispro (Insulin Lispro 100 Unit/Ml Insuln.Pen) 0 unit SC ACHS S CH; Protocol Last Admin: 10/24/20 06:33 Dose: Not Given Documented by: Insulin Human Lispro (Insulin Lispro 100 Unit/Ml Insuln.Pen) 10 unit SC TIDCM [facility] Last Admin: 10/24/20 08:22 Dose: 10 u Documented by: Methadone HCl (Methadone 5 Mg Tablet) 2.5 mg PO QHS [facility] Last Admin: 10/23/20 21:31 Dose: 2.5 mg Documented by: Ondansetron HCl (Ondansetron 4 Mg/2 Ml Vial) 4 mg IV Q8H PRN PRN PRN Reason: NAUSEA/VOMITING Senna/Docusate Sodium (Senna/Docusate Sodium 1 Tablet) 2 tablet PO BID PRN PRN PRN Reason: Constipation Sertraline HCl (Sertraline 50 Mg Tablet) 75 mg PO DAILY [facility] Last Admin: 10/24/20 09:35 Dose: 75 mg Documented by: Sodium Chloride (0.9% Saline Lock 10 Ml Syringe) 10 - 40 ml IV UD PRN PRN Reason: SALINE FLUSH Zolpidem Tartrate (Zolpidem Tartrate 5 Mg Tablet) 5 mg PO QHS PRN PRN PRN Reason: INSOMNIA Medical Necessity - Tobacco Use Smoking Status: Never smoker Assessment/Plan All Active Problems Unresponsive episode (Acute) Acute encephalopathy (Acute) Hypertensive urgency (Acute) 1. Acute encephalopathy, presumed secondary to hypertensive urgency-brain CT unremarkable. Patient now alert and oriented. Blood pressure has remained stable. Plan for SNF with hospice pending acceptance. 2. Hypertensive urgency-resolved, monitor BP. Continue home Coreg regimen. As needed hydralazine. 3. End-stage renal disease-patient refused dialysis. Plan for hospice at discharge as noted above. 4. Type 2 diabetes [id number] with sliding scale insulin. Continue home insulin regimen. 5. Hyperlipidemia-continue statin. 6. Depression-on Zoloft. CODE STATUS: DNR CC Discharge planning: SNF with hospice pending acceptance. This patient was seen by MIKAL Menard under the supervision of Dr. Merida. <Alka Merida - Last Filed: 10/24/20 16:23> - Physical Exam Vitals/I&O's: Vital Signs Temp Pulse Resp BP Pulse Ox 98.1 F 63 17 135/57 H 97 10/24/20 13:46 10/24/20 15:33 10/24/20 13:46 10/24/20 13:46 10/24/20 13:46 Oxygen Delivery Method Room Air Weight: 189 lb 9.561 oz Body Mass Index (BMI) 29.7 Finger Stick Blood Glucose 185 Intake and Output for Last 24 Hours 10/22/20 10/23/20 10/24/20 23:59 23:59 23:59 Intake Total 240 / 420 1112.5 / 1112.5 Output Total 0 / 0 Balance 240 / 420 1112.5 / 1112.5 Microbiology Past 72 Hours 10/24/20 11:10 Mucosa - Nose SARS-CoV-2 Antigen (Rapid) - Final Laboratory Results 10/23/20 17:23: POC Glucose 167 H 10/23/20 21:26: POC Glucose 135 H 10/24/20 05:32: WBC 9.2, RBC 2.85 L, Hgb 8.1 L, Hct 24.7 L, MCV 86.7, MCH 28.4, MCHC 32.8, RDW Std Deviation 39.5, RDW Coeff of [place] 12.3, Plt Count 241, MPV 9.7, Immature Gran % (Auto) 0.400, Neut % (Auto) 65.7, Lymph % (Auto) 23.1, [place] % (Auto) 6.3, Eos % (Auto) 3.8, Baso % (Auto) 0.7, Absolute Neuts (auto) 6.0, Absolute Lymphs (auto) 2.12, Nucleated RBC % 0 10/24/20 05:32: Sodium 138, Potassium 4.1, Chloride 105, Carbon Dioxide 25.0, Anion Gap 8, BUN 48 H, Creatinine 4.79 H, Estim Creat Clear Calc 8.81, Est GFR (MDRD) Af Amer 11 L, Est GFR (MDRD) Non-Af 9 L, BUN/Creatinine Ratio 10.0, Glucose 118 H, Calcium 8.2 L 10/24/20 06:31: POC Glucose 115 H 10/24/20 12:25: POC Glucose 68 L Current Medications Acetaminophen (Acetaminophen 325 Mg Tablet) 650 mg PO Q6H PRN PRN PRN Reason: Pain Score 1-10/Temp > 100.7 F Last Admin: 10/23/20 18:29 Dose: 650 mg Documented by: Aspirin (Aspirin 81 Mg Tab.Chew) 81 mg PO DAILYCM [facility] Last Admin: 10/24/20 08:22 Dose: 81 mg Documented by: Carvedilol (Carvedilol 25 Mg Tablet) 25 mg PO BID [facility] Last Admin: 10/24/20 09:34 Dose: 25 mg Documented by: Furosemide (Furosemide 40 Mg Tablet) 40 mg PO DAILY [facility] Last Admin: 10/24/20 09:35 Dose: 40 mg Documented by: Heparin Sodium (Porcine) (Heparin Injection (Vial) 5,000 Unit/Ml Vial) 5,000 unit SC Q8 [facility] Last Admin: 10/24/20 14:07 Dose: 5,000 unit Documented by: Hydralazine HCl (Hydralazine 20 Mg/Ml Vial) 10 mg IV Q4H PRN PRN PRN Reason: for SBP>160 Hydralazine HCl (Hydralazine 25 Mg Tablet) 25 mg PO BID [facility] Last Admin: 10/24/20 09:34 Dose: 25 mg Documented by: Insulin Glargine (Insulin Glargine 100 Units/Ml Pen) 30 units SC QHS [facility] Last Admin: 10/23/20 21:27 Dose: 30 units Documented by: Insulin Human Lispro (Insulin Lispro 100 Unit/Ml Insuln.Pen) 0 unit SC ACHS [facility]; Protocol Last Admin: 10/24/20 12:28 Dose: Not Given Documented by: Insulin Human Lispro (Insulin Lispro 100 Unit/Ml Insuln.Pen) 10 unit SC TIDCM [facility] Last Admin: 10/24/20 12:28 Dose: Not Given Documented by: Methadone HCl (Methadone 5 Mg Tablet) 2.5 mg PO QHS [facility] Last Admin: 10/23/20 21:31 Dose: 2.5 mg Documented by: Ondansetron HCl (Ondansetron 4 Mg/2 Ml Vial) 4 mg IV Q8H PRN PRN PRN Reason: NAUSEA/VOMITING Senna/Docusate Sodium (Senna/Docusate Sodium 1 Tablet) 2 tablet PO BID PRN PRN PRN Reason: Constipation Sertraline HCl (Sertraline 50 Mg Tablet) 75 mg PO DAILY [facility] Last Admin: 10/24/20 09:35 Dose: 75 mg Documented by: Sodium Chloride (0.9% Saline Lock 10 Ml Syringe) 10 - 40 ml IV UD PRN PRN Reason: SALINE FLUSH Zolpidem Tartrate (Zolpidem Tartrate 5 Mg Tablet) 5 mg PO QHS PRN PRN PRN Reason: INSOMNIA Assessment/Plan Patient seen by MIKAL Menard under my supervision. Seen and examined. She was admitted with a complaint of altered mental status and was found to have markedly elevated blood pressure. He was managed for hypertensive urgency. She has no complaints at time I reviewed her. She is hard of hearing. Review systems otherwise negative. O/E: Vital Signs Temp Pulse Resp BP Pulse Ox 98.1 F 63 17 135/57 H 97 10/24/20 13:46 10/24/20 15:33 10/24/20 13:46 10/24/20 13:46 10/24/20 13:46 General: Alert, Oriented x3, Cooperative HEENT: Atraumatic, PERRLA, EOMI, Normocephalic Neck: Supple, No JVD, Negative Carotid Bruits Lungs: Clear to auscultation, Normal air movement Cardiovascular: Regular rate, No murmurs Abdomen: Bowel Sounds Present, Soft, Non Tender, Non-Distended Extremities: No clubbing, No cyanosis, No edema, Capillary Refill Less than 3 Seconds Skin: No rashes, No breakdown Musculoskeletal: No Tenderness to Palpation of Joints or Extremities Neurological: Cranial nerves II-XII grossly intact, Neuro grossly intact Psych/Mental Status: Normal Affect, Appropriate Pressure has improved markedly. 135/57 at time of review. Creatinine is elevated but she does have a history of end-stage renal disease for which she refuses dialysis. Coreg was resumed and she is on IV hydralazine. Patient wishes to go to a SNF in [place] where her daughter works. Case management on board. PT OT on board. Was on hospice and revoked hospice coming to the hospital. She plans on going to the group home with hospice. Rest as per MIKAL Menard's notes which I reviewed and endorsed. Inpatient E&M: 31810 Subs Hosp L2
[2020-10-24 12:35] LABS: Bedside Glucose 68 mg/dL (70-110)
--- NOTE | 2020-10-24 13:04 | CASEMGMT ---
Addendum entered by Joan Hinton 10/24/20 13:45: СВЕТЛАНА called Anna back and she said she needs to verify patient's insurance etc and then she will call SW to set up transport. Joan AZUL Original Note: СВЕТЛАНА faxed all information to [facility]. СВЕТЛАНА received a return call from Anna at [facility]. She asked SW to fax information. She said they do have a bed for patient. СВЕТЛАНА told her patient is pending Medicaid and СВЕТЛАНА wrote the pending case number on the face sheet. СВЕТЛАНА will check back in with Anna to see if it is ok for SW to set up transport. Joan SALCEDO MSW
--- NOTE | 2020-10-24 14:06 | CASEMGMT ---
СВЕТЛАНА received a call from Anna at [facility]. She said they do not take [employer]. СВЕТЛАНА told her patient is not going to the fpc on her [employer]. She is coming on Hospice on her pending Medicaid. [employer] will pay for the Hospice services. It should not matter to [employer] where she is getting the services since they are not paying for her room and board at the SNF. Anna said she will talk with their business office and get back with СВЕТЛАНА. СВЕТЛАНА called a couple of colleagues and asked them the general question regarding above. Both said it does not matter where patient gets Hospice services since her insurance is not paying for the room and board. Await return call from [facility]. Joan SALCEDO MSW
--- NOTE | 2020-10-24 14:22 | CHAPLAIN ---
Type of Pastoral Visit _x__ Initial Visit ___ Follow-up Visit ___ On-call Visit ___ General Patient Visit ___ Spiritual Assessment ___ Family Conference ___ Bereavement ___ Rapid Response ___ Code Blue ___ Other (describe below) Pastoral Care Referral From _x__ Patient ___ Family ___ Nurse ___ Physician ___ Tester Sound ___ Pool Hand ___ Other (describe below) Sacrament/Intervention _x__ Active listening ___ Anointing ___ Druze ___ Bereavement ___ Communion ___ Kary exploration ___ ___ Life review _x__ Prayer ___ Reconciliation ___ Sacrament of Sick _x__ Supportive presence ___ Wedding ___ Other (describe below) Pastoral Comments spouse of patient is at bedside and is feeding pt her lunch; pt talks but spouse does more of the interaction; pt states several times that she just wants to go where my daughter is (SNF where daughter and granddaughter work); pt asked about her concerns and her response I worry about everything; pt willing for prayer and presence as her support from physical therapy asst
--- NOTE | 2020-10-24 14:25 | CASEMGMT ---
СВЕТЛАНА received a call from Nicole alberto of the RN's with [facility]. She asked for an update. СВЕТЛАНА told her the issue SW is having with [facility]. SW is waiting on a return call from Anna at [facility]. She said they have papers that need signed by patient's . The next appt they have is tomorrow am. She said she could call her dispatch and see if there is anything else they can do. She said the facility would have to be okay with her being there tonight and not signing on with Hospice till tomorrow am. СВЕТЛАНА told her SW will update her when СВЕТЛАНА hears back. Joan SALCEDO MSW
--- NOTE | 2020-10-24 15:39 | CASEMGMT ---
СВЕТЛАНА received a call from patient's daughter Judi. She said [facility] is not going to work as they want 30 days up front and her parents do not have the money. She is not sure what to do. СВЕТЛАНА told her SW can call [facility] facilities and see who takes pending Medicaid and who needs money up front. СВЕТЛАНА told her SW will talk with her when SW finds out more. СВЕТЛАНА told her patient won't go today. She said she will call her step dad and let him know she will not be going today. СВЕТЛАНА called several facilities in [facility]. Three of the facilities SW spoke with do take pending Medicaid and they do not require money up front. СВЕТЛАНА called patient's daughter and left her a voice mail letting her know this information and that СВЕТЛАНА will follow up with her tomorrow. Joan AZUL
[2020-10-24 17:30] LABS: Bedside Glucose 129 mg/dL (70-110)
[2020-10-24] MEDS: Insulin Lispro 100 UNIT/ML INSULN.PEN SC (21:10)
[2020-10-24 22:01] LABS: Bedside Glucose 208 mg/dL (70-110)
[2020-10-24] MEDS: Zolpidem Tartrate 5 MG Tablet PO (22:41)
[2020-10-24] MEDS: Acetaminophen 325 MG Tablet 650 MG PO (22:42)
[2020-10-25] VITALS (8 sets, daily range): BP systolic 145–177; BP diastolic 66–69; PULSE 63–71; RESP 14–16; TEMP 36.6–36.9; O2SAT 96–99
[2020-10-25] MEDS: Heparin Injection (Vial) 5,000 UNIT/ML VIAL 5000 UNIT SC ×2 (06:53→15:40)
[2020-10-25 07:01] LABS: Bedside Glucose 92 mg/dL (70-110)
[2020-10-25] MEDS: Aspirin 81 MG TAB.CHEW PO (09:57)
[2020-10-25] MEDS: hydrALAZINE 25 MG Tablet PO (09:57)
[2020-10-25] MEDS: Sertraline 50 MG Tablet 75 MG PO (09:57)
[2020-10-25] MEDS: Furosemide 40 MG Tablet PO (09:58)
[2020-10-25] MEDS: Carvedilol 25 MG Tablet PO (09:58)
--- NOTE | 2020-10-25 10:00 | CASEMGMT ---
СВЕТЛАНА received a call from patient's daughter Judi Felix. She said they chose [facility]. СВЕТЛАНА told her that SW will work on this and let her know what SW finds out. She said she is working so she asked that SW leave her a voice mail. СВЕТЛАНА left a message for Nola with [facility]. One of the facilities that takes pending Medicaid and does not require money up front. She then called right back. She said that she did verify if a patient goes to a SNF on pending Medicaid and they before Medicaid is approved the halfway does not get paid. She said she needs to talk with her medical administrator, but she really wants to make this happen to help this family. She said she will get back to as soon as she can. СВЕТЛАНА called Nicole with [facility] and let her know SW is working with [facility]. SW will let her know as soon as СВЕТЛАНА hears back from them. (Nicole RN with Hospice: [phone]) Joan SALCEDO MSW
--- NOTE | 2020-10-25 10:19 | CASEMGMT ---
Addendum entered by Joan Hinton 10/25/20 10:27: СВЕТЛАНА updated patient. Joan SALCEDO HOUSEFELLOW Original Note: SW received a call from the Bilingual Office Assistant with [facility]. She is with patient's and they were wondering about d/c plan. СВЕТЛАНА told her SW is working on [facility]. SW is waiting on them to get back with SW. She asked that SW call her when SW has an answer. Her name is Idalmis and her number is [phone]. Joan SALCEDO MSW
[2020-10-25] MEDS: Insulin Lispro 100 UNIT/ML INSULN.PEN 10 UNIT SC (11:56)
[2020-10-25] MEDS: Insulin Lispro 100 UNIT/ML INSULN.PEN SC (11:56)
[2020-10-25 12:01] LABS: Bedside Glucose 269 mg/dL (70-110)
--- NOTE | 2020-10-25 13:40 | CASEMGMT ---
СВЕТЛАНА called Nola with [facility]. She said they are going to take patient. She told SW to have patient picked up at 1730 or 1800. СВЕТЛАНА faxed orders to both [facility] and [facility]. СВЕТЛАНА arranged for patient to get picked up at 1730 via cot. СВЕТЛАНА notified patient, left message for her daughter, called her , called Idalmis with Hospice, RN, and clerical secretary. Plan: d/c to [facility] on hospice with [facility]. [facility] transported her via cot. Joan SALCEDO BRACELET FORMER
--- NOTE | 2020-10-25 14:02 | DS.PCM_ITS ---
<Flaquita Cerda LONG TERM CARE PHARMACIST - Last Filed: 10/25/20 14:05> Discharge Date and Diagnosis - Problem List Patient Problems: Active and Suspected Problems Unresponsive episode (Acute) Acute encephalopathy (Acute) Hypertensive urgency (Acute) Date of Admission: 10/23/20 Date of Discharge: 10/25/20 - Primary Discharge Diagnosis Acute Problems: Active Problems 1. Acute encephalopathy, presumed secondary to hypertensive urgency 2. Hypertensive urgency 3. End-stage renal disease 4. Type 2 diabetes mellitus 5. Hyperlipidemia 6. Depression - Secondary Discharge Diagnosis Chronic Problems: Chronic Problems Depression (Chronic) Hyperlipidemia (Chronic) Type 2 diabetes mellitus (Chronic) Hypertension (Chronic) ESRD (end stage renal disease) (Chronic) Hospital Course and Treatment Imaging Results: Diagnostic Data Chest X-Ray 10/23/20 12:40 IMPRESSION: No acute abnormality is seen. Electronically Signed: Danie Boyd MD at 13:11 EST , Service support , Brain CT 10/23/20 12:55 IMPRESSION: Chronic involutional changes of the brain. Electronically Signed: Danie Boyd MD at 13:14 EST , Service support , Operations: None Procedures: None Summary of Care Provided: The patient is a 80 year old F admitted 10/23/2020 due to unresponsiveness. 1. Acute encephalopathy, presumed secondary to hypertensive urgency-brain CT unremarkable. Patient now alert and oriented. Blood pressure has remained stable. SNF with hospice at discharge per patient request. 2. Hypertensive urgency-resolved. Continue home Coreg regimen. As needed hydralazine. 3. End-stage renal disease-patient refused dialysis. Plan for hospice at discharge as noted above. 4. Type 2 diabetes mellitus-Continue home insulin regimen. 5. Hyperlipidemia-continue statin. 6. Depression-on Zoloft. General: Alert, Oriented x3, Cooperative HEENT: Atraumatic, PERRLA, EOMI, Normocephalic Neck: Supple, No JVD, Negative Carotid Bruits Lungs: Clear to auscultation, Normal air movement Cardiovascular: Regular rate, No murmurs Abdomen: Bowel Sounds Present, Soft, Non Tender, Non-Distended Extremities: No clubbing, No cyanosis, No edema, Capillary Refill Less than 3 Seconds Skin: No rashes, No breakdown Musculoskeletal: No Tenderness to Palpation of Joints or Extremities Neurological: Cranial nerves II-XII grossly intact, Neuro grossly intact Psych/Mental Status: Normal Affect, Appropriate Patient seen and examined prior to discharge. Physical assessment as noted above. Patient is stable for discharge with follow up recommendations as noted above. This patient was seen by MIKAL Menard under the supervision of Dr. Merida. Patient Problems: Active and Suspected Problems Unresponsive episode (Acute) Acute encephalopathy (Acute) Hypertensive urgency (Acute) - Physical Exam Vitals/I&O's: Vital Signs Temp Pulse Resp BP Pulse Ox 98 F 64 14 177/69 H 99 10/25/20 09:55 10/25/20 12:19 10/25/20 09:55 10/25/20 09:57 10/25/20 10:11 Oxygen Delivery Method Room Air Weight: 189 lb 9.561 oz Body Mass Index (BMI) 29.7 Finger Stick Blood Glucose 185 Intake and Output for Last 24 Hours 10/23/20 10/24/20 10/25/20 23:59 23:59 23:59 Intake Total 240 / 420 1832.5 / 1952.5 180 / 180 Output Total 250 / 250 50 / 50 Balance 240 / 420 1582.5 / 1702.5 130 / 130 Microbiology Past 72 Hours 10/24/20 11:10 Mucosa - Nose SARS-CoV-2 Antigen (Rapid) - Final Laboratory Results 10/24/20 17:26: POC Glucose 129 H 10/24/20 21:07: POC Glucose 208 H 10/25/20 06:50: POC Glucose 92 10/25/20 11:54: POC Glucose 269 H Current Medications Acetaminophen (Acetaminophen 325 Mg Tablet) 650 mg PO Q6H PRN PRN PRN Reason: Pain Score 1-10/Temp > 100.7 F Last Admin: 10/24/20 22:42 Dose: 650 mg Documented by: Aspirin (Aspirin 81 Mg Tab.Chew) [facility] Last Admin: 10/25/20 09:57 Dose: 81 mg Documented by: Carvedilol (Carvedilol 25 Mg Tablet) 25 mg PO BID [facility] Last Admin: 10/25/20 09:58 Dose: 25 mg Documented by: Furosemide (Furosemide 40 Mg Tablet) 40 mg PO DAILY [facility] Last Admin: 10/25/20 09:58 Dose: 40 mg Documented by: Heparin Sodium (Porcine) (Heparin Injection (Vial) 5,000 Unit/Ml Vial) 5,000 unit SC Q8 [facility] Last Admin: 10/25/20 06:53 Dose: 5,000 unit Documented by: Hydralazine HCl (Hydralazine 20 Mg/Ml Vial) 10 mg IV Q4H PRN PRN PRN Reason: for SBP>160 Hydralazine HCl (Hydralazine 25 Mg Tablet) 25 mg PO BID [facility] Last Admin: 10/25/20 09:57 Dose: 25 mg Documented by: Insulin Glargine (Insulin Glargine 100 Units/Ml Pen) 30 units SC QHS [facility] Last Admin: 10/24/20 21:10 Dose: 30 units Documented by: Insulin Human Lispro (Insulin Lispro 100 Unit/Ml Insuln.Pen) 0 unit SC [facility]; Protocol Last Admin: 10/25/20 11:56 Dose: 2 u Documented by: Insulin Human Lispro (Insulin Lispro 100 Unit/Ml Insuln.Pen) 10 unit SC TIDCM [facility] Last Admin: 10/25/20 11:56 Dose: 10 u Documented by: Methadone HCl (Methadone 5 Mg Tablet) 2.5 mg PO QHS [facility] Last Admin: 10/24/20 21:08 Dose: 2.5 mg Documented by: Ondansetron HCl (Ondansetron 4 Mg/2 Ml Vial) 4 mg IV Q8H PRN PRN PRN Reason: NAUSEA/VOMITING Senna/Docusate Sodium (Senna/Docusate Sodium 1 Tablet) 2 tablet PO BID PRN PRN PRN Reason: Constipation Sertraline HCl (Sertraline 50 Mg Tablet) 75 mg PO DAILY [facility] Last Admin: 10/25/20 09:57 Dose: 75 mg Documented by: Sodium Chloride (0.9% Saline Lock 10 Ml Syringe) 10 - 40 ml IV UD PRN PRN Reason: SALINE FLUSH Zolpidem Tartrate (Zolpidem Tartrate 5 Mg Tablet) 5 mg PO QHS PRN PRN PRN Reason: INSOMNIA Last Admin: 10/24/20 22:41 Dose: 5 mg Documented by: Home Medications: Medications to take at Discharge Aspirin [Aspirin, Baby] 81 mg PO DAILY 12/02/19 Carvedilol 25 mg PO BID 12/02/19 Insulin Glargine,Hum.rec.anlog [Lantus] 30 unit SQ QHS 12/02/19 Sertraline HCl [Zoloft] 75 mg PO DAILY 12/02/19 Acetaminophen [Tylenol] 650 mg PO Q4H PRN 10/23/20 Furosemide [Lasix] 40 mg PO DAILY 10/23/20 Hydromorphone HCl 1 - 2 mg PO Q4H PRN 10/23/20 Insulin Lispro [Humalog KwikPen] 10 unit SQ TIDCM 10/23/20 Methadone HCl 2.5 mg PO QHS 10/23/20 Ondansetron HCl [Zofran] 4 mg PO TID PRN 10/23/20 Sennosides/Docusate Sodium [Sennosides-Docusate Sodium Tab] 1 - 2 tab PO DAILY PRN 10/23/20 hydrALAZINE [Apresoline] 25 mg PO BID PRN 10/23/20 Primary Care Physician: Florinda Ridley [Primary Care Provider] - Please follow up with your Primary Care Physician in: As needed Please Follow Up With: Hospice to follow at SNF Disposition: [facility] facility - with hospice Minutes spent on discharge:: 35 Patient Condition:: Stable Medical Necessity - Tobacco Use Smoking Status: Never smoker Meaningful Use Info Meaningful Use Diagnoses (Choose all that apply): None applicable <Alka Merida - Last Filed: 10/25/20 16:01> Discharge Date and Diagnosis - Primary Discharge Diagnosis Acute Problems: Active Problems Unresponsive episode (Acute) Acute encephalopathy (Acute) Hypertensive urgency (Acute) - Secondary Discharge Diagnosis Chronic Problems: Chronic Problems Depression (Chronic) Hyperlipidemia (Chronic) Type 2 diabetes mellitus (Chronic) Hypertension (Chronic) ESRD (end stage renal disease) (Chronic) Hospital Course and Treatment Summary of Care Provided: Patient seen by MIKAL Menard under my supervision. The patient is a 80 year old F with a past medical history as outlined was admitted through the ED on 10/23/2020 with a complaint of altered mental status. found her to be unresponsive and he could not wake air for several minutes. She had not taken her meds that morning 2. The EMS was called and on arrival, patient had a Ole Coma Scale of 8 and had an episode of vomiting. She subsequently became alert and oriented and GCS was 15. She complained of headache. On admission in the ED, blood pressure was noted to be severely elevated with systolic blood pressure of 226 systolic. She was given a dose of Coreg and losartan which were her regular home meds which had not taken the morning and also given IV hydralazine. Blood pressure subsequently improved. EKG showed no acute ST changes and CT of the brain showed no acute intracranial pathology. Chest x-ray showed no acute infiltrate or consolidation. She was therefore managed for acute metabolic encephalopathy due to hypertensive urgency. Her blood pressure stabilized. Per patient's request, they wanted patient to go to a custodial intermittent and when her daughter worked. Patient had been on home with hospice prior to coming in and this was revoked upon admission. Family wanted patient to go to the custodial with hospice. Patient remained stable and was discharged to long-term facility on 10/25/2020. She is to follow-up with her primary care doctor within 1 to 2 weeks. Patient seen and examined prior to discharge. She had no complaints. She is very hard of hearing. Review of symptoms otherwise negative. Labs and vitals reviewed. Home medication reviewed and reconciled. O/E: Vital Signs Temp Pulse Resp BP Pulse Ox 98.4 F 65 14 145/68 H 96 10/25/20 15:27 10/25/20 15:27 10/25/20 15:27 10/25/20 15:27 10/25/20 15:27 [] General: Alert, Oriented x3, Cooperative HEENT: Atraumatic, PERRLA, EOMI, Normocephalic Neck: Supple, No JVD, Negative Carotid Bruits Lungs: Clear to auscultation, Normal air movement Cardiovascular: Regular rate, No murmurs Abdomen: Bowel Sounds Present, Soft, Non Tender, Non-Distended Extremities: No clubbing, No cyanosis, No edema, Capillary Refill Less than 3 Seconds Skin: No rashes, No breakdown Musculoskeletal: No Tenderness to Palpation of Joints or Extremities Neurological: Cranial nerves II-XII grossly intact, Neuro grossly intact, very hard of hearing Psych/Mental Status: Normal Affect, Appropriate Plan is for discharge to SNF as outlined. Is as per Flaquita Cerda NP-C's notes which I have reviewed and endorsed. - Physical Exam Vitals/I&O's: Vital Signs Temp Pulse Resp BP Pulse Ox 98.4 F 65 14 145/68 H 96 10/25/20 15:27 10/25/20 15:27 10/25/20 15:27 10/25/20 15:27 10/25/20 15:27 Oxygen Delivery Method Room Air Weight: 189 lb 9.561 oz Body Mass Index (BMI) 29.7 Finger Stick Blood Glucose 185 Intake and Output for Last 24 Hours 10/23/20 10/24/20 10/25/20 23:59 23:59 23:59 Intake Total 240 / 420 1832.5 / 1952.5 630 / 630 Output Total 250 / 250 350 / 350 Balance 240 / 420 1582.5 / 1702.5 280 / 280 Microbiology Past 72 Hours 10/24/20 11:10 Mucosa - Nose SARS-CoV-2 Antigen (Rapid) - Final Laboratory Results 10/24/20 17:26: POC Glucose 129 H 10/24/20 21:07: POC Glucose 208 H 10/25/20 06:50: POC Glucose 92 10/25/20 11:54: POC Glucose 269 H Current Medications Acetaminophen (Acetaminophen 325 Mg Tablet) 650 mg PO Q6H PRN PRN PRN Reason: Pain Score 1-10/Temp > 100.7 F Last Admin: 10/24/20 22:42 Dose: 650 mg Documented by: Aspirin (Aspirin 81 Mg Tab.Chew) [facility] Last Admin: 10/25/20 09:57 Dose: 81 mg Documented by: Carvedilol (Carvedilol 25 Mg Tablet) 25 mg PO BID [facility] Last Admin: 10/25/20 09:58 Dose: 25 mg Documented by: Furosemide (Furosemide 40 Mg Tablet) 40 mg PO DAILY [facility] Last Admin: 10/25/20 09:58 Dose: 40 mg Documented by: Heparin Sodium (Porcine) (Heparin Injection (Vial) 5,000 Unit/Ml Vial) 5,000 unit SC Q8 [facility] Last Admin: 10/25/20 15:40 Dose: 5,000 unit Documented by: Hydralazine HCl (Hydralazine 20 Mg/Ml Vial) 10 mg IV Q4H PRN PRN PRN Reason: for SBP>160 Hydralazine HCl (Hydralazine 25 Mg Tablet) 25 mg PO BID [facility] Last Admin: 10/25/20 09:57 Dose: 25 mg Documented by: Insulin Glargine (Insulin Glargine 100 Units/Ml Pen) 30 units SC QHS [facility] Last Admin: 10/24/20 21:10 Dose: 30 units Documented by: Insulin Human Lispro (Insulin Lispro 100 Unit/Ml Insuln.Pen) 0 unit SC ACHS [facility]; Protocol Last Admin: 10/25/20 11:56 Dose: 2 u Documented by: Insulin Human Lispro (Insulin Lispro 100 Unit/Ml Insuln.Pen) 10 unit SC TIDCM [facility] Last Admin: 10/25/20 11:56 Dose: 10 u Documented by: Methadone HCl (Methadone 5 Mg Tablet) 2.5 mg PO QHS [facility] Last Admin: 10/24/20 21:08 Dose: 2.5 mg Documented by: Ondansetron HCl (Ondansetron 4 Mg/2 Ml Vial) 4 mg IV Q8H PRN PRN PRN Reason: NAUSEA/VOMITING Senna/Docusate Sodium (Senna/Docusate Sodium 1 Tablet) 2 tablet PO BID PRN PRN PRN Reason: Constipation Sertraline HCl (Sertraline 50 Mg Tablet) 75 mg PO DAILY [facility] Last Admin: 10/25/20 09:57 Dose: 75 mg Documented by: Sodium Chloride (0.9% Saline Lock 10 Ml Syringe) 10 - 40 ml IV UD PRN PRN Reason: SALINE FLUSH Zolpidem Tartrate (Zolpidem Tartrate 5 Mg Tablet) 5 mg PO QHS PRN PRN PRN Reason: INSOMNIA Last Admin: 10/24/20 22:41 Dose: 5 mg Documented by: Inpatient E&M: [id number] Disch Hosp
[2020-10-25 16:50] LABS: Bedside Glucose 113 mg/dL (70-110)
--- NOTE | 2020-10-25 17:57 | NURSING ---
report called to [facility] [phone] ze wharton rn
== END 2020-10-25 17:55 | disposition skilled nursing facility (03) | DRG 304 ==
LOC: ED 14:47 → PCU 15:21
PROVIDERS: Admitting Provider Hospitalist; Emergency Provider Emergency Medicine; PCP Family Medicine; Visit Provider Student in an Organized Health Care Education/Training Program
DX: I16.0 Hypertensive urgency (principal); N18.6 End stage renal disease; G93.40 Encephalopathy, unspecified; I12.0 Hypertensive chronic kidney disease with stage 5 chronic kidney disease or end stage renal disease; E11.22 Type 2 diabetes mellitus with diabetic chronic kidney disease; E78.5 Hyperlipidemia, unspecified; F32.9 Major depressive disorder, single episode, unspecified; Z79.4 Long term (current) use of insulin; Z66 Do not resuscitate; Z90.710 Acquired absence of both cervix and uterus; Z91.15 Patient's noncompliance with renal dialysis; H91.90 Unspecified hearing loss, unspecified ear
CPT/HCPCS: 36415; 70450; 71045; 80048; 80053; 81001; 82962; 83605; 84484; 85025; 85610; 85730; 87426; 93005; 97802; 99251; 99285; J7030; A4216; G0463